=== PATIENT | male | born 1950 | race Caucasian/White ===

== ENCOUNTER 2016-04-08 10:46 | Outpatient (CLI) | payer MEDICARE, OTHER | END 2016-04-08 10:47 | LOC: LAB 10:46 | PROVIDERS: ATTEND Family Medicine | DX: E11.9 Type 2 diabetes mellitus without complications (principal) | CPT/HCPCS: 36415; 82043; 83036 ==

== ENCOUNTER 2016-06-23 07:16 | Outpatient (CLI) | payer MEDICARE, OTHER ==
[2016-06-23 09:38] LABS: eGFR (African) > 60; eGFR (Non-African) > 60
--- NOTE | 2016-06-23 15:33 | Diagnostic Imaging Report ---
NUNO GO [facility] [address] [facility] [address] [id number] Report Submission Date: Jun 23, 2016 2:06:25 PM CDT Patient Study Name: YUAN VELÁZQUEZ Date: Jun 23, 2016 9:45:54 AM CDT Modality Type: CT\SR Gender: M Description: CT ABD & PELVIS W/ CON : 50 Institution: [facility] Physician: NUNO GO CT abdomen and pelvis with IV contrast Clinical history: 1.3 cm left adrenal mass, followup examination 93 mL omnipaque Radiation dose DLP 1076 Prior films are not available for comparison. Hepatic steatosis and without focal hepatic or splenic pathology. 1.3 cm left adrenal mass unchange since the prior study according to the report probably benign adenoma . normal pancreas and right adrenal gland. Normal kidneys. No bowel obstruction, no free fluid or free air in the abdomen or pelvis. Few diverticula in the sigmoid colon without diverticulitis. The prostate is protruding into the base of the bladder . Impression: Hepatic steatosis with focal hepatic or splenic pathology 1.3 cm left adrenal mass unchanged and probably represent benign adenoma. Punctate dense material in the kidneys probably stones could represent an early calyceal filling. No hydronephrosis. Mild diverticulosis of the sigmoid colon Nodular appearance of the prostate protruding into the base of the bladder require clinical examination Electronically signed on Jun 23, 2016 2:06:25 PM CDT by: Nuno SALOMON
== END 2016-06-23 07:17 ==
LOC: RAD 07:16
PROVIDERS: ATTEND Family Medicine
DX: E27.9 Disorder of adrenal gland, unspecified (principal); E11.9 Type 2 diabetes mellitus without complications
CPT/HCPCS: 74177; 82565; Q9966; A9698

== ENCOUNTER 2017-06-16 09:51 | Outpatient (CLI) | payer MEDICARE, OTHER ==
[2017-06-17 08:46] LABS: eGFR (African) > 60; eGFR (Non-African) > 60
== END 2017-06-16 09:52 ==
LOC: LAB 09:51
PROVIDERS: ATTEND Family Medicine
DX: E11.9 Type 2 diabetes mellitus without complications (principal)
CPT/HCPCS: 36415; 80053; 80061; 82043; 83036

== ENCOUNTER 2018-06-19 15:30 | Outpatient (CLI) | payer MEDICARE, OTHER ==
[2018-06-19 18:24] LABS: eGFR (Non-African) > 60
== END 2018-06-19 15:33 ==
LOC: LABRHC 15:30
PROVIDERS: ATTEND Family Medicine
DX: E11.9 Type 2 diabetes mellitus without complications (principal); I10 Essential (primary) hypertension
CPT/HCPCS: 80053; 80061; 82043; 83036

== ENCOUNTER 2018-08-07 08:35 | Day surgery (SDC) | payer MEDICARE, OTHER ==
[2018-08-07] MEDS ORDERED: LACTATED RINGERS 1,000 ML IV.SOLN IV ONE (08:48)
[2018-08-07] MEDS ORDERED: PROPOFOL 200 MG/20 ML VIAL IV ONE (08:48)
[2018-08-07] MEDS ORDERED: LIDOCAINE HCL 2% PF 100MG/5ML VIAL IJ ONE (08:48)
--- NOTE | 2018-10-17 08:59 | GI Report ---
DATE OF PROCEDURE: 08/07/2018 REFERRING PHYSICIAN: Dr. Ferro. PROCEDURE PERFORMED: Colonoscopy. SURGEON: Eufemia Hill M.D., F.Cristino.CJulianP. INDICATION FOR PROCEDURE: 68-year-old man referred for screening colonoscopy. His stools are sometimes irregular. He did have a colonoscopy in 2007. He denies family history of known colorectal cancer. PROCEDURE MEDICATION: Propofol, as per Anesthesia. DESCRIPTION OF PROCEDURE: The Olympus video colonoscope was advanced into the rectum and slowly advanced all the way to the cecum. It was a slightly atonic redundant colon. The appendiceal orifice and ileocecal valve looked normal. We had to lavage several areas to increase visibility because there still was a little bit of residual stool. On slow withdrawal, the cecum, ascending colon, no obvious intraluminal lesions were noted. Transverse colon: Again, no obvious intraluminal lesions were noted. Descending colon and sigmoid: Some redundancy but no intraluminal lesions noted. Retroflexion in the rectum was normal. The patient tolerated the procedure well. FINDINGS: Slightly atonic redundant colon but normal otherwise. RECOMMENDATIONS: 1. Would increase fiber in the diet such as Benefiber or Metamucil daily in the evening. 2. Increase fiber in his diet. 3. Consider relook at his colon in 10 years, sooner if clinically indicated. EUFEMIA HILL M.D., F.A.C.P. VIDYA/min Job#: [id number] Cc: Dr. Ferro [facility]
== END 2018-08-07 11:39 ==
LOC: OPSURG 08:35
PROVIDERS: ATTEND Internal Medicine Gastroenterology
DX: Z12.11 Encounter for screening for malignant neoplasm of colon (principal); K63.89 Other specified diseases of intestine
CPT/HCPCS: G0121; J2001; J2704; J7120